=== PATIENT | female | born 2000 | race Caucasian/White ===

== ENCOUNTER 2022-01-06 09:18 | Day surgery (SDC) | payer OTHER ==
[~2022-01-06] VITALS: Ht 165.1 cm; Wt 107.7 kg
[2022-01-06] MEDS ORDERED: PRIL40 PO (10:40)
[2022-01-06 10:42] VITALS: BP 113/80; PULSE 87; TEMP 98.3
[2022-01-06 11:20] VITALS: BP 98/54; PULSE 71; TEMP 97.8
--- NOTE | 2022-01-06 11:20 | NUR ---
Patient arrives to [facility] via cart, accompanied by [facility] RN Tameka Quigley, who checks her in and gives report at the nursing station. Patient is alert and oriented. VSS on room air. IVF to TKO. Call light in reach.
[2022-01-06 11:35] VITALS: BP 83/59; PULSE 70
--- NOTE | 2022-01-06 11:35 | NUR ---
Patient's blood pressure reading is 83/59. Rechecked and reading is 82/54. She denies any dizziness/nausea/lightheadedness. Pulse is 70 and regular. Chair is reclined and IVF rate increased. Will return to check another blood pressure in 5 minutes.
[2022-01-06 11:40] VITALS: BP 100/60; PULSE 64
--- NOTE | 2022-01-06 11:40 | NUR ---
Patient's blood pressure is now 100/60. She continues to deny symptoms of hypotension. Her chairback is raised to a sitting position. She is offered and receives water and a muffin to eat.
[2022-01-06 11:45] VITALS: BP 122/82; PULSE 65
[2022-01-06 12:05] VITALS: BP 114/59; PULSE 67
--- NOTE | 2022-01-06 12:15 | NUR ---
BP is stable. Patient has met discharge criteria. Discharge instructions are discussed. SHe denies any questions and verbalizes understanding. PIV is removed with catheter intact and hemostasis achieved. She changes to her clothing independently. SHe is escorted to the exit via wheelchair by staff. She is discharged to the care of her , who drives her home in a private vehicle at 1215.
== END 2022-01-06 12:15 | disposition home or self-care (01) ==
LOC: SDCO 09:18
DX: K29.50 Unspecified chronic gastritis without bleeding (principal); K21.9 Gastro-esophageal reflux disease without esophagitis
CPT/HCPCS: J2704; J7120